=== PATIENT | male | born 1940 | race Caucasian/White ===

== ENCOUNTER 2017-04-23 15:41 | Emergency (ER) | payer MEDICARE ==
[~2017-04-23] VITALS: Ht 162.6 cm; Wt 100.0 kg
[~2017-04-23 15:41] MED LIST: ALBU2.5V4 INHALATION; ALBU8.5H2 INHALATION; ALPH300T2 PO; ALPR0.254 PO; ASPI325T32 PO; ATRV10T PO; BUSP10TA2 PO; CHOL100045 PO; CLOB15CR3 TOP; DILT360C30 PO; DOCU-41 PO; DOCU250C2 PO; FEXO-106 PO; FLUT12AE8 IH; GABA800T2 PO; IPRA3AMP IH; LEVA15HF5 IH; LEVO137C2 PO; OXYB5TAB10 PO; PANT40TA3 PO; TIOT18CA3 IH; VENL150C98 PO; [UNRECOGNIZED DRUG - CODE] TP
[2017-04-23 16:08] VITALS: BP 152/80; PULSE 89; RESP 23; O2SAT 97
[2017-04-23 18:15] VITALS: BP 148/86; PULSE 86; RESP 20; O2SAT 98
[2017-04-23 18:25] LABS: BASOPHILS % (AUTO) 0.4 % (0-3); EOSINOPHILS % (AUTO) 3.6 % (0-5); MONOCYTES % (AUTO) 15.8 % (4-12); Mean Corpuscular Hemoglobin 31.4 pg (27.0-35.0); Mean Corpuscular Volume 92.5 fL (81-100); NEUTROPHILS % (AUTO) 59.2 % (40-74); Platelet Count 226 bil/L (150-400)
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
[2017-04-23 18:58] LABS: Magnesium 2.3 mg/dL (1.6-2.6)
[2017-04-23 19:00] VITALS: BP 135/93; PULSE 88; RESP 20; O2SAT 96
[2017-04-23 19:00] LABS: TROPONIN T < 0.010 ug/L (0.0-0.011)
--- NOTE | 2017-04-23 19:03 | DRSVH ---
PROCEDURE: X-RAY CHEST ONE VIEW, PORTABLE ([id number]) INDICATIONS: CHEST PAIN TECHNIQUE: One view of the chest was acquired. COMPARISON: [facility], CR, XR CHEST 2VW, 08/20/2015, 11:22. FINDINGS: Surgical changes and devices: Upper abdominal clips are present. Lungs and pleura: No pleural effusions or pneumothorax. Lungs are clear. Mediastinum: Mediastinal contours appear normal. Heart size is minimally prominent. Bones and chest wall: No suspicious bony lesions. Overlying soft tissues appear unremarkable. IMPRESSION: No acute pulmonary process. Dictated by: Libia Beauchamp M.D. on 04/23/2017 at 18:59 Approved by: Libia Beauchamp M.D. on 04/23/2017 at 19:02
[2017-04-23 20:00] VITALS: BP 145/85; PULSE 85; RESP 20; O2SAT 95
[2017-04-23 21:17] VITALS: BP 145/85; PULSE 85; RESP 20; O2SAT 95
== END 2017-04-23 21:22 | disposition home or self-care (01) ==
LOC: SED 15:41
DX: R07.9 Chest pain, unspecified (principal); I10 Essential (primary) hypertension; K21.9 Gastro-esophageal reflux disease without esophagitis; E78.5 Hyperlipidemia, unspecified; Z87.891 Personal history of nicotine dependence; Z79.82 Long term (current) use of aspirin; Z88.2 Allergy status to sulfonamides; Z88.4 Allergy status to anesthetic agent; Z88.5 Allergy status to narcotic agent; Z88.8 Allergy status to other drugs, medicaments and biological substances
CPT/HCPCS: 36415; 71010; 80053; 83735; 84484; 85025; 93005; 99285; G0463